=== PATIENT | female | born 1995 | race Caucasian/White ===

== ENCOUNTER 2025-07-08 22:13 | Emergency (ER) | payer SELFPAY ==
[~2025-07-08] VITALS: Ht 157.5 cm; Wt 80.0 kg
[2025-07-08 22:32] VITALS: O2SAT 100
[2025-07-09] MEDS: SODIUM CHLORIDE 0.9% 1,000 ML IV ONE (00:15)
[2025-07-09] MEDS: MORPHINE SULFATE 4 MG/ML INJ (FOR IV/IM USE) IV ONE (00:15)
[2025-07-09] MEDS: ONDANSETRON HCL 4MG/2ML INJ IV ONE (00:15)
[2025-07-09] MEDS: KETOROLAC 15MG/ML VIAL IV ONE (00:15)
[2025-07-09 00:26] LABS: BASOPHILS % 0.4 % (0.0-2.0); EOSINOPHILS % 0.7 % (0.0-5.0); HEMATOCRIT. 36.2 % (36.0-48.0); HEMOGLOBIN. 12.0 g/dL (12.0-16.0); LYMPHOCYTES % 26.4 % (20.0-50.0); MEAN PLATELET VOLUME 9.4 fl (7.4-10.4); MONOCYTES % 6.7 % (2.0-8.0); NEUTROPHILS % 65.8 % (40.0-76.0); PLATELET 192 x1000/uL (130-400); RED BLOOD CELL COUNT 4.03 mill/uL (4.2-5.4); RED CELL DISTRIBUTION WIDTH 13.8 % (11.6-14.6)
[2025-07-09 00:40] LABS: CREATININE 0.8 mg/dL (0.6-1.0)
[2025-07-09 00:41] LABS: UREA NITROGEN BLOOD 8 mg/dL (9-23)
[2025-07-09 00:42] LABS: ASPARTATE AMINOTRANSFERASE 16 IU/L (<34); BILIRUBIN DIRECT < 0.1 mg/dL (<=3.0)
[2025-07-09 00:43] LABS: BILIRUBIN TOTAL 0.2 mg/dL (0.1-1.0); PROTEIN TOTAL 7.2 g/dL (6.0-8.3)
[2025-07-09 00:50] LABS: HCG SCREEN NEGATIVE
[2025-07-09] MEDS ORDERED: TRAM50TA3 MT (01:25)
[2025-07-09 01:39] VITALS: BP 102/51; PULSE 64; RESP 18; TEMP 35.7; O2SAT 100
== END 2025-07-09 01:39 | disposition home or self-care (01) ==
LOC: ER 22:13
DX: N80.9 Endometriosis, unspecified (principal); Z88.5 Allergy status to narcotic agent; Z79.899 Other long term (current) drug therapy
CPT/HCPCS: 36415; 99284; 80076; 80048; 84703; 83690; 83735; 85025; 86850; 86900; 86901; 96361; 96374; 96375; 96376; J1885; J2405; J2270; J7030; Z7610 ×2